=== PATIENT | male | born 1960 | race Caucasian/White ===

== ENCOUNTER 2019-01-05 22:08 | Emergency (ER) | payer MEDICAID, MEDICARE ==
[~2019-01-05] VITALS: Ht 175.3 cm; Wt 78.1 kg
[2019-01-05] MEDS ORDERED: SODIUM CHLORIDE 0.9% 1,000ML IVBOLUS ONE (22:30)
[2019-01-05] MEDS ORDERED: SODIUM CHLORIDE FLUSH 10ML SYR IVF ONE (22:30)
[2019-01-05 22:59] LABS: BASOPHILS # (AUTO) 0.01 x10^3/uL (0-0.1); BASOPHILS % (AUTO) 0 % (0-1); EOSINOPHILS # (AUTO) 0.03 x10^3/uL (0-0.4); EOSINOPHILS % (AUTO) 0 % (1-7); LYMPHOCYTES # (AUTO) 1.05 x10^3/uL (1-3.4); LYMPHOCYTES % (AUTO) 13 % (22-44); MD NO; MEAN CORPUSCULAR HEMOGLOBIN 30.9 pg (27.5-34.5); MEAN CORPUSCULAR HGB CONC 32.9 g/dL (33.2-36.2); MEAN CORPUSCULAR VOLUME 93.9 fL (81-97); MEAN PLATELET VOLUME 7.6 fL (7.4-10.4); MONOCYTES # (AUTO) 1.11 x10^3/uL (0.2-0.8); MONOCYTES % (AUTO) 14 % (2-9); NEUTROPHILS # (AUTO) 5.62 x10^3/uL (1.8-6.8); NEUTROPHILS % (AUTO) 72 % (42-75); PLATELET COUNT 312 x10^3/uL (130-400); RED CELL DISTRIBUTION WIDTH 13.7 % (9.4-14.8)
[2019-01-05 23:02] LABS: ALANINE AMINOTRANSFERASE 28 U/L (12-78); ALBUMIN 3.3 g/dL (3.4-5.0); ANION GAP 9 mmol/L (5-15); CALCIUM 8.9 mg/dL (8.5-10.1); CHLORIDE 100 mmol/L (98-107); CREATININE 1.24 mg/dL (0.7-1.3)
[2019-01-05 23:04] LABS: ALKALINE PHOSPHATASE 61 U/L (45-117); BILIRUBIN,TOTAL 0.4 mg/dL (0.2-1.0); TOTAL PROTEIN 7.9 g/dL (6.4-8.2)
--- NOTE | 2019-01-05 23:29 | NUR ---
PT ABLE TO AMBULATE TO RESTROOM AND BACK INTO BED. UA OBTAINED AND TUBED TO LAB.
[2019-01-05 23:39] LABS: MICROSCOPIC INDICATED
[2019-01-05 23:45] LABS: CULTURE INDICATED? NO
[2019-01-06 00:55] VITALS: BP 126/77
--- NOTE | 2019-01-06 00:58 | NUR ---
ALEXIS RN: PT DISCHARGED WITH A TAXI VOUCHER AND INFORMATION FOR CARE CHEST.
== END 2019-01-06 00:59 | disposition home or self-care (01) ==
LOC: ED 22:42
DX: R19.7 Diarrhea, unspecified (principal); R11.0 Nausea; F17.210 Nicotine dependence, cigarettes, uncomplicated
CPT/HCPCS: 36415; 80053; 81001; 83690; 85025; 96360; 96361; 99283; J7030

== ENCOUNTER → 2020-03-17 | Outpatient (CLI) | payer MEDICARE | END | disposition home or self-care (01) | LOC: STAR 11:51 | PROVIDERS: ATTEND Surgery | DX: Z01.818 Encounter for other preprocedural examination (principal); K40.90 Unilateral inguinal hernia, without obstruction or gangrene, not specified as recurrent; Z20.828 Contact with and (suspected) exposure to other viral communicable diseases | CPT/HCPCS: 87635; 93005 ==

== ENCOUNTER 2020-03-21 05:37 | Day surgery (SDC) | payer MEDICARE ==
[~2020-03-21] VITALS: Ht 180.3 cm; Wt 77.9 kg
[2020-03-21 06:10] VITALS: BP 110/72
[2020-03-21] MEDS ORDERED: NO HOME MEDS PER PT (06:12)
[2020-03-21] MEDS ORDERED: LACTATED RINGERS 1,000 ML IV SCH (06:30)
[2020-03-21] MEDS ORDERED: CHLORHEXIDINE 15 ML UDC MM ONE (06:30)
[2020-03-21] MEDS ORDERED: FENTANYL PF 100 MCG/2ML ONE ×2 (06:49→09:18)
[2020-03-21] MEDS ORDERED: MIDAZOLAM 1 MG/ML, 2ML ONE (06:49)
[2020-03-21] MEDS ORDERED: BUPIVACAINE/EPI 0.5% 1:200K ONE (06:57)
[2020-03-21] MEDS ORDERED: METOCLOPRAMIDE 5 MG/ML, 2ML IVPush PRN (08:30)
[2020-03-21] MEDS ORDERED: hydrALAzine 20 MG/ML, 1ML IV PRN (08:30)
[2020-03-21] MEDS ORDERED: HALOPERIDOL 5 MG/ML IV PRN (08:30)
[2020-03-21] MEDS ORDERED: EPHEDRINE 50 MG/ML, 1ML IVPush PRN (08:30)
[2020-03-21] MEDS ORDERED: ACETAMINOPHEN 325 MG TABLET PO PRN (08:30)
[2020-03-21] MEDS ORDERED: DIAZEPAM 5 MG/ML, 2ML IVPush PRN (08:30)
[2020-03-21] MEDS ORDERED: LABETALOL 5MG/ML, 20ML IV PRN (08:30)
[2020-03-21] MEDS ORDERED: OXYcodone 5 MG/5 ML ORAL.SOL UDC PO PRN (08:30)
[2020-03-21] MEDS ORDERED: HYDROmorphone 1 MG/ML, 1ML INJ IVPush PRN (08:30)
[2020-03-21] MEDS ORDERED: ONDANSETRON 2MG/ML, 2ML IVPush PRN (08:30)
[2020-03-21] MEDS ORDERED: ALBUTEROL/IPRATROPIUM 2.5MG/0.5MG, 3 ML NPPB PRN (08:30)
[2020-03-21] MEDS ORDERED: OXYcodone 5 MG/5 ML ORAL.SOL UDC ONE (09:18)
[2020-03-21] MEDS ORDERED: ACETAMINOPHEN 650 MG/20.3 ML UDC ONE (09:18)
[2020-03-21] MEDS ORDERED: ONDANSETRON 2MG/ML, 2ML ONE (09:20)
[2020-03-21] MEDS: FENTANYL PF 100 MCG/2ML IV PRN ×2 (09:25→09:33)
[2020-03-21] MEDS ORDERED: KETOROLAC 30 MG/1 ML ONE (09:29)
[2020-03-21] MEDS ORDERED: KETOROLAC 30 MG/1 ML IVPush PRN (09:30)
[2020-03-21] MEDS ORDERED: METHOCARBAMOL 1,000 MG in DEXTROSE 5% 100 ML IV ONE (09:30)
[2020-03-21] MEDS ORDERED: METHOCARBAMOL 1,000 MG in DEXTROSE 5% 100 ML IV SCH (09:30)
[2020-03-21] MEDS ORDERED: METHOCARBAMOL 1000MG/10 ML IV ONE (09:30)
== END 2020-03-21 12:15 | disposition home or self-care (01) ==
LOC: OUT 05:37
PROVIDERS: ATTEND Surgery
DX: K40.90 Unilateral inguinal hernia, without obstruction or gangrene, not specified as recurrent (principal); F32.9 Major depressive disorder, single episode, unspecified; F17.210 Nicotine dependence, cigarettes, uncomplicated; F15.90 Other stimulant use, unspecified, uncomplicated; Z88.5 Allergy status to narcotic agent; Z91.040 Latex allergy status; Z72.89 Other problems related to lifestyle; Z79.899 Other long term (current) drug therapy; Z86.73 Personal history of transient ischemic attack (TIA), and cerebral infarction without residual deficits
CPT/HCPCS: 49650; C1781; J1885; J2250; J2405; J2800; J3010; J7120